=== PATIENT | female | born 1970 | race Asian ===

== ENCOUNTER 2017-02-13 17:46 | Emergency (ER) | payer OTHER ==
[~2017-02-13] VITALS: Ht 144.8 cm; Wt 55.0 kg
[2017-02-13 17:49] VITALS: BP 129/77
[2017-02-13] MEDS ORDERED: PLEASE ENTER ALLERGIES MC SCH ×2 (18:30)
[2017-02-13] MEDS ORDERED: KETOROLAC 30 MG/1 ML IM ONE (18:30)
[2017-02-13] MEDS ORDERED: KETOROLAC 30 MG/1 ML ONE (18:59)
== END 2017-02-13 19:19 | disposition home or self-care (01) ==
LOC: ED 18:32
DX: S39.012A Strain of muscle, fascia and tendon of lower back, initial encounter (principal); V49.69XA Unspecified car occupant injured in collision with other motor vehicles in traffic accident, initial encounter; Y93.89 Activity, other specified; Y99.8 Other external cause status; Y92.488 Other paved roadways as the place of occurrence of the external cause
CPT/HCPCS: 72125; 96372; 99284; J1885